=== PATIENT | female | born 2005 | race Caucasian/White ===

== ENCOUNTER 2023-12-15 23:19 | Emergency (ER) | payer SELFPAY ==
[~2023-12-15] VITALS: Ht 167.6 cm; Wt 54.4 kg
[~2023-12-15 23:19] MED LIST: NKHM; TYLENOL W/CODE480 ML PO
[2023-12-16] MEDS ORDERED: PREDNISONE20 M1 PO (00:09)
[2023-12-16] MEDS ORDERED: methylPREDNISolone sod succ 125 MG VIAL IM ONE (00:10)
== END 2023-12-16 00:22 | disposition home or self-care (01) ==
LOC: ED 23:19
DX: J40 Bronchitis, not specified as acute or chronic (principal)